=== PATIENT | male | born 1990 | race Caucasian/White ===

== ENCOUNTER 2021-10-25 17:40 | Emergency (ER) | payer OTHER ==
[2021-10-25 17:48] VITALS: BP 131/80; PULSE 91; RESP 18; TEMP 98.6; BMI 30.7
[2021-10-25] MEDS ORDERED: LIDOCAINE 5% TOPICAL PATCH TP ONE (19:25)
[2021-10-25] MEDS ORDERED: ACETAMINOPHEN 500 MG TABLET (FP) PO ONE (19:25)
[2021-10-25] MEDS ORDERED: ACETAMINOPHEN 500 MG TABLET (FP) ONE (19:28)
[2021-10-25] MEDS ORDERED: LIDOCAINE 5% TOPICAL PATCH ONE (19:29)
[2021-10-25] MEDS ORDERED: LIDOCAINE PATCH REMOVAL MC SCH (22:00)
== END 2021-10-25 19:49 | disposition home or self-care (01) ==
LOC: JER 17:40
DX: S89.91XA Unspecified injury of right lower leg, initial encounter (principal); X50.9XXA Other and unspecified overexertion or strenuous movements or postures, initial encounter
CPT/HCPCS: 0241U-QW; 73562-TC-RT-FY; 99284-25

== ENCOUNTER 2022-06-05 19:05 | Inpatient (IN) | payer OTHER ==
[2022-06-05 19:55] VITALS: BMI 31.5
[2022-06-05] MEDS ORDERED: BENZONATATE 200 MG CAPSULE PO PRN (20:32)
[2022-06-05] MEDS ORDERED: MAGNESIUM HYDROX 2400MG/30ML ORAL SUSPENSION 30 ML CUP PO PRN (20:32)
[2022-06-05] MEDS ORDERED: NICOTINE POLACRILEX 2 MG GUM BUC PRN (20:32)
[2022-06-05] MEDS ORDERED: guaiFENesin 600 MG TABLET.ER (FP) PO PRN (20:32)
[2022-06-05] MEDS ORDERED: ONDANSETRON *ODT* 4 MG TABLET SL PRN (20:32)
[2022-06-05] MEDS ORDERED: POLYETHYLENE GLYCOL (HEALTHYLAX) 3350 17 GM PACKET PO PRN (20:32)
[2022-06-05] MEDS ORDERED: ACETAMINOPHEN 325 MG TABLET (FP) PO PRN ×2 (20:32)
[2022-06-05] MEDS ORDERED: BENZOCAINE/MENTHOL (CHLORASEPTIC ) LOZENGE MM PRN (20:32)
[2022-06-05] MEDS ORDERED: IBUPROFEN 400 MG TABLET (FP) PO PRN (20:32)
[2022-06-05] MEDS ORDERED: MAG HYDROX/AL HYDROX/SIMETH 30 ML UNIT-DOSE CUP PO PRN (20:32)
[2022-06-05] MEDS ORDERED: BISMUTH SUBSALICYLATE 524 MG/30 ML PO PRN (20:32)
[2022-06-05] MEDS ORDERED: IBUPROFEN 600 MG TABLET (FP) PO PRN (20:32)
[2022-06-05] MEDS ORDERED: DICYCLOMINE HCL 10 MG CAPSULE PO PRN (20:32)
[2022-06-05] MEDS ORDERED: LOPERAMIDE HCL 2 MG CAPSULE PO PRN (20:32)
[2022-06-05] MEDS ORDERED: P-EPHED 60MG/TRIPROLIDI 2.5MG TABLET PO PRN (20:32)
[2022-06-05] MEDS: THIAMINE HCL 100 MG TABLET (FP) PO SCH (22:51)
[2022-06-05] MEDS: diazePAM 5 MG TABLET PO SCH (22:51)
[2022-06-05] MEDS: MELATONIN 5 MG TABLETS PO PRN (22:51)
[2022-06-06] MEDS: diazePAM 5 MG TABLET PO SCH ×4 (05:42→22:16)
[2022-06-06] MEDS: PRENATAL VITAMINS W/ FOLIC ACID TABLET (FP) PO SCH (10:35)
[2022-06-06 12:28] LABS: HEMATOCRIT 43.4 % (35.4-49); HEMOGLOBIN 15.1 GM/dL (11.7-16.9); MCHC 34.9 g/dl (32.0-35.9); MEAN CELL VOLUME 91.9 fl (80-96); MEAN PLT VOLUME 8.5 fl (7.5-11.1); PLATELET COUNT 267 10^3/uL (134-434); RBC 4.72 M/mm3 (4.00-5.60); WHITE BLOOD COUNT 5.6 K/mm3 (4.0-10.0)
[2022-06-06 12:33] LABS: ALBUMIN 3.7 g/dl (3.4-5.0); CALCIUM 9.1 mg/dL (8.5-10.1)
[2022-06-06 12:34] LABS: BLOOD UREA NITROGEN 17.5 mg/dL (7-18)
[2022-06-06 12:38] LABS: BILIRUBIN,TOTAL 0.9 mg/dL (0.2-1)
[2022-06-06] MEDS: THIAMINE HCL 100 MG TABLET (FP) PO SCH (22:15)
[2022-06-06] MEDS: MELATONIN 5 MG TABLETS PO PRN (22:16)
[2022-06-07] MEDS: diazePAM 5 MG TABLET PO SCH ×3 (05:50→22:27)
[2022-06-07] MEDS: diazePAM 5 MG TABLET PO PRN (08:49)
[2022-06-07] MEDS: PRENATAL VITAMINS W/ FOLIC ACID TABLET (FP) PO SCH (10:22)
[2022-06-07] MEDS: MELATONIN 5 MG TABLETS PO PRN (22:14)
[2022-06-07] MEDS: THIAMINE HCL 100 MG TABLET (FP) PO SCH (22:28)
[2022-06-08] MEDS ORDERED: diazePAM 5 MG TABLET PO SCH (06:00)
[2022-06-08] MEDS: diazePAM 5 MG TABLET PO PRN ×2 (07:54→13:11)
[2022-06-08] MEDS: PRENATAL VITAMINS W/ FOLIC ACID TABLET (FP) PO SCH (10:19)
[2022-06-08 12:51] VITALS: TEMP 98.2
[2022-06-08 17:13] VITALS: BP 136/92; PULSE 102; RESP 18
[2022-06-09] MEDS ORDERED: diazePAM 5 MG TABLET PO ONE (06:00)
== END 2022-06-08 16:36 | disposition home or self-care (01) | DRG 775 ==
LOC: YASAS 19:05 → Y3N 21:51
PROVIDERS: ADMIT Allergy & Immunology; ATTEND Surgery
PROC: HZ2ZZZZ Detoxification Services for Substance Abuse Treatment (ICD-10-PCS; principal; 2022-06-05)
DX: F10.230 Alcohol dependence with withdrawal, uncomplicated (principal); F17.210 Nicotine dependence, cigarettes, uncomplicated; Z28.310 Unvaccinated for COVID-19; Z28.9 Immunization not carried out for unspecified reason
CPT/HCPCS: 36415; 80053; 85027; 86780; C9803-CS; U0003; U0005